=== PATIENT | female | born 1995 | race African-American/Black ===

== ENCOUNTER 2016-04-23 15:01 | Emergency (ER) | payer OTHER ==
[2016-04-23] MEDS ORDERED: SODIUM CHLORIDE 0.9% 1,000 ML ONE (19:19)
[2016-04-23] MEDS ORDERED: ONDANSETRON 4 MG VIAL ONE (19:19)
[2016-04-23] MEDS ORDERED: MORPHINE 4 MG/ML SYR ONE (19:28)
== END 2016-04-23 20:30 | disposition home or self-care (01) ==
LOC: ER 15:01
DX: N80.9 Endometriosis, unspecified (principal); N39.0 Urinary tract infection, site not specified
CPT/HCPCS: 36415; 80053; 81001; 83690; 84703; 85025; 87088; 96361; 96374; 96375; 99285; J2270; J2405